=== PATIENT | male | born 1980 | race Caucasian/White ===

== ENCOUNTER → 2016-10-04 | Outpatient (CLI) | payer OTHER ==
[2016-10-04 08:23] LABS: BUN/CREATININE RATIO 14 (0-10)
== END ==
LOC: LAB 07:41
PROVIDERS: Internal Medicine Nephrology
DX: R80.9 Proteinuria, unspecified (principal)
CPT/HCPCS: 36415; 80053; 81001; 82043; 82570; 84156

== ENCOUNTER → 2020-11-23 | Outpatient (CLI) | payer OTHER ==
[2020-11-23 09:36] LABS: BUN/CREATININE RATIO 18 (0-10)
== END ==
LOC: LAB 08:16
PROVIDERS: Internal Medicine Nephrology
DX: R80.9 Proteinuria, unspecified (principal)
CPT/HCPCS: 36415; 80053; 81001; 82043; 82570; 84156

== ENCOUNTER → 2022-01-05 | Outpatient (CLI) | payer OTHER ==
[2022-01-05 08:28] LABS: BUN/CREATININE RATIO 16 (0-10)
[2022-01-06 11:16] LABS: CREATININE, URINE 24.6 mg/dL (Not Estab.)
== END ==
LOC: LAB 07:22
PROVIDERS: Internal Medicine Nephrology
DX: R80.9 Proteinuria, unspecified (principal)
CPT/HCPCS: 36415; 80053; 81001; 82043; 82570; 84156